=== PATIENT | female | born 1945 | race Caucasian/White ===

== ENCOUNTER → 2020-07-06 14:38 | Outpatient (BNVA) | payer MEDICARE, SELFPAY | PROVIDERS: Visit Provider Nurse Practitioner Family | DX: Z13.6 Encounter for screening for cardiovascular disorders (principal); R53.82 Chronic fatigue, unspecified; E03.9 Hypothyroidism, unspecified; J44.9 Chronic obstructive pulmonary disease, unspecified; N18.9 Chronic kidney disease, unspecified; I10 Essential (primary) hypertension; Z12.31 Encounter for screening mammogram for malignant neoplasm of breast; K21.9 Gastro-esophageal reflux disease without esophagitis; Z78.0 Asymptomatic menopausal state; Z12.39 Encounter for other screening for malignant neoplasm of breast; Z68.34 Body mass index [BMI] 34.0-34.9, adult; F17.211 Nicotine dependence, cigarettes, in remission; Z77.22 Contact with and (suspected) exposure to environmental tobacco smoke (acute) (chronic); Z71.89 Other specified counseling | CPT/HCPCS: 80053; 80061; 82306; 82607; 84443; 85025 ==

== ENCOUNTER 2020-07-14 09:28 | Outpatient (CLI) | payer MEDICARE, SELFPAY ==
--- NOTE | 2020-07-14 09:35 | XR_ITS ---
WS: [id number] SCREENING DEXA SCAN [employer] CLINICAL INFORMATION: Z78.0 - Asymptomatic menopausal state COMPARISON: None. FINDINGS: The L1-L4 bone mineral density measures 1.327 g/cm2. This corresponds to a T score score of 1.2 and Z score of 2.1. Left femoral neck bone mineral density measures 0.875 g/cm2. This corresponds to a T score of -1.0 an d Z score of 0.0. Right femoral neck bone mineral density measures 0.931 g/cm2. This corresponds to a T score -0.6of an d Z score of 0.4. Mean femoral neck bone mineral density measures 0.903 g/cm2. This corresponds to a T score of -0.8 an d Z score of 0.2. XR/XR DEXA axial skeleton* [id number] IMPRESSION: Osteopenia femoral necks. Normal bone mineralization lumbar spine. Patient's FRAX calculated 10 year probability for major osteoporotic fracture i s 32.4 % and osteoporotic hip fracture is 15.5%.
== END 2020-07-14 09:29 | disposition home or self-care (01) ==
LOC: RADWPI 09:33
PROVIDERS: PCP Nurse Practitioner Family; Visit Provider Nurse Practitioner Family
DX: Z78.0 Asymptomatic menopausal state (principal); M85.88 Other specified disorders of bone density and structure, other site
CPT/HCPCS: 77080

== ENCOUNTER 2020-09-08 08:58 | Outpatient (CLI) | payer MEDICARE, SELFPAY ==
--- NOTE | 2020-09-08 09:42 | MR_ITS ---
WS: [id number] MRI RIGHT SHOULDER NONCONTRAST TECHNIQUE: Sagittal T2, coronal T1, T2 and proton density imaging. Axial gradient PDE imaging. CLINICAL INFORMATION: M25.511 - Pain in right shoulder COMPARISON: None. FINDINGS: Moderate degenerative arthritis at the AC joint with mild edema. Mild downsloping acromion with subac romial spurring. Supraspinatus and infraspinatus are normal. Normal teres minor. 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 Tiny biceps tendon in the bicipital groove likely chronically torn. Tiny atrophic intra-articular bic eps tendon. Glenoid labrum appears grossly normal. Degenerative cystic change involving the greater t uberosity. MR/MR shoulder RT wo con* [id number] IMPRESSION: 1. Moderate arthritis AC joint with edema. 2. Normal supraspinatus and infraspinatus. Normal teres minor. 3. Tendinopathy or chronic intrasubstance tear involving the subscapularis. 4. Tiny atrophic intra-articular and proximal biceps tendon in the bicipital g roove likely chronically torn
== END 2020-09-08 08:59 | disposition home or self-care (01) ==
PROVIDERS: PCP Nurse Practitioner Family; Visit Provider Nurse Practitioner Family
DX: M13.811 Other specified arthritis, right shoulder (principal); R60.0 Localized edema
CPT/HCPCS: 73221

== ENCOUNTER 2020-09-09 11:30 | Outpatient (CLI) | payer MEDICARE, SELFPAY ==
--- NOTE | 2020-09-09 11:30 | MM_ITS ---
WS: [id number] BILATERAL DIGITAL SCREENING MAMMOGRAPHY WITH CAD CLINICAL INFORMATION: Z12.39 - Encounter for other screening for malignant neoplasm of breast HISTORY: Screening mammogram. No current complaints. COMPARISON: None available TECHNIQUE: Bilateral CC and MLO views. FINDINGS: Scattered fibroglandular densities bilaterally. Several focal asymmetric densities in the mid and out er right breast. Some of these may represent intramammary lymph nodes but indeterminant without prior comparison. Additional 8 mm asymmetric density posterior depth left breast in the midline. Biopsy cl ip right breast. Punctate and lucent centered calcifications. MM/[id number] IMPRESSION: BI-RADS: 0-Incomplete: Need additional imaging evaluation FOLLOW UP: Need Additional Imaging RECOMMEND BILATERAL DIAGNOSTIC MAMMOGRAPHY AND BILATERAL ULTRASOUND TO EVALUATE INDETERMINATE ASYMMETRIC DENSITIES
== END 2020-09-09 11:31 | disposition home or self-care (01) ==
LOC: RADSHAW 11:32
PROVIDERS: PCP Nurse Practitioner Family; Visit Provider Nurse Practitioner Family
DX: Z12.31 Encounter for screening mammogram for malignant neoplasm of breast (principal)
CPT/HCPCS: 77067